=== PATIENT | female | born 1960 ===

== ENCOUNTER 2016-07-12 10:20 | Emergency (ER) | payer OTHER ==
--- NOTE | 2016-07-12 11:04 | UC ---
Back Pain HPI - HPI Summary HPI Summary: lower back pain x 3 days, pain is on both sides, radiates to the flank area, increase pain with movement better with rest, + urinary frequency , no burning on urination - History of Current Complaint Chief Complaint: UCBackPain Stated Complaint: FLANK PAIN,NAUSEA Time Seen by Provider: 07/12/16 10:22 Hx Obtained From: Patient ?: No Onset/Duration: Gradual Onset, Lasting Days - 3, Still Present Timing: Constant Severity Initially: Moderate Severity Currently: Moderate Back Pain: Is Discrete @ - lower back pain Aggravating: Movement Alleviating: Rest Associated Signs And Symptoms: Positive: Flank Pain. Negative: Swelling, Redness, Bruising, Fever, Weakness, Numbness, Tingling, Abdominal Pain, Bladder Incontinence, Bowel Incontinence, Weight Loss, Pain with Weight Bearing - Allergies/Home Medications Allergies/Adverse Reactions: Allergies Allergy/AdvReac Type Severity Reaction Status Date / Time Codeine Allergy Intermediate emothional Verified 07/12/16 10:28 stuff Gabapentin [From Neurontin] Allergy Intermediate emotional Verified 07/12/16 10: 28 stuff Penicillins Allergy Unknown Unknown Verified 07/12/16 10:28 Reaction Details Home Medications: Home Medications ALPRAZolam TAB* [Xanax TAB*] 0.25 mg PO DAILY 07/12/16 [History Confirmed ] Acetaminophen TAB* [Tylenol TAB*] 650 mg PO Q4H PRN 07/12/16 [History Confirmed 07/12/16] Albuterol Sulfate [Proair Respiclick] 108 mcg IN Q4H PRN 07/12/16 [History Confirmed 07/12/16] Citalopram TAB* [CeleXA TAB*] 10 mg PO DAILY 07/12/16 [History Confirmed ] Oxycodone HCl [Oxaydo] 5 mg PO DAILY 07/12/16 [History Confirmed 07/12/16] Spironolactone TAB* [Aldactone TAB*] 25 mg PO DAILY 07/12/16 [History Confirmed 07/12/16] ValACYclovir (*) [Valtrex 500 mg (*)] 500 mg PO DAILY 07/12/16 [History Confirmed 07/12/16] PMH/Surg Hx/FS Hx/Imm Hx Respiratory History Of: Reports: COPD - Surgical History Surgical History: Yes Surgery Procedure, Year, and Place: carpal tunnel- 2003. LEFT SHOULDER REPLACEMENT - Family History Known Family History: Negative: Diabetes - Social History Alcohol Use: Rare Substance Use Type: None Smoking Status (MU): Former Smoker Type: Cigarettes When Did the Patient Quit Smoking/Using Tobacco: 6 YEARS AGO Review of Systems Constitutional: Negative Skin: Negative Eyes: Negative ENT: Negative Respiratory: Negative Musculoskeletal: Other: - lower back pain All Other Systems Reviewed And Are Negative: Yes Physical Exam Triage Information Reviewed: Yes Appearance: Well-Appearing, No Pain Distress, Well-Nourished Vital Signs: Initial Vital Signs Temp 97.9 F 07/12/16 10:35 Pulse 55 07/12/16 10:35 Resp 18 07/12/16 10:35 BP 126/83 07/12/16 10:35 Pulse Ox 99 07/12/16 10:35 Vital Signs Reviewed: Yes Eye Exam: Normal Eyes: Positive: Conjunctiva Clear ENT: Positive: Normal ENT inspection, Hearing grossly normal, Pharynx normal Neck: Positive: Supple, Nontender, No Lymphadenopathy Respiratory: Positive: Chest non-tender, Lungs clear, Normal breath sounds Cardiovascular: Positive: RRR, No Murmur, Pulses Normal Abdominal Exam: Normal Abdomen Description: Positive: Nontender, Soft. Negative: CVA Tenderness (R), CVA Tenderness (L), Distended, Guarding Bowel Sounds: Positive: Present Musculoskeletal: Positive: Other: - lower back : no swelling, no erythema, mild diffuse tenderness, pain with flexion and extesion Back Pain Course/Dx - Differential Dx/Diagnosis Provider Diagnoses: lower back strain Discharge - Discharge Plan Condition: Stable Disposition: HOME Prescriptions: Methylprednisolone [Medrol Dosepak 4 MG*] 0 mg PO .SEE GLORIA INSTRUCTION #1 packet Patient Education Materials: Low Back Strain (ED) Referrals: Saúl Marshall MD [Primary Care Provider] - 7 Days
[2016-07-12 11:07] VITALS: BP 126/83
== END 2016-07-12 11:10 | disposition home or self-care (01) ==
LOC: UCCORT 10:20
DX: S39.012A Strain of muscle, fascia and tendon of lower back, initial encounter (principal); X58.XXXA Exposure to other specified factors, initial encounter; Y93.9 Activity, unspecified; Y92.9 Unspecified place or not applicable; J44.9 Chronic obstructive pulmonary disease, unspecified; Z88.5 Allergy status to narcotic agent; Z88.0 Allergy status to penicillin; Z87.891 Personal history of nicotine dependence
CPT/HCPCS: 81003; 99212; G0463